=== PATIENT | male | born 1970 | race Caucasian/White ===

== ENCOUNTER 2021-01-13 14:46 | Outpatient (CLI) | payer OTHER, SELFPAY ==
--- NOTE | ~2021-01-13 | US_ITS ---
EXAMINATION: US soft tissue LE RT EXAM DATE: 01/13/2021 15:10 INDICATION: T14.8XXA - Other injury of unspecified body region, initial encounter. Leg injury, swelli ng. TECHNIQUE: Multiple grayscale and Doppler images of the right medial calf traumatic region were obtai shreya (by a technologist who performed the scan) and subsequently reviewed. FINDINGS: There is complex cystic heterogeneous avascular region measuring 2.8 x 2.0 x 0.7 cm, within the subcu taneous fat. Most likely a small focal hematoma. There is a nonthrombosed adjacent superficial vein. IMPRESSION: Right calf heterogeneous masslike region probably subcutaneous hematoma. Clinical correla tion and follow-up to resolution. Reviewed, dictated and finalized at location A. IMPRESSION: Right calf heterogeneous masslike region probably subcutaneous adriano niharika. Clinical correlation and follow-up to resolution.
== END 2021-01-13 14:47 | disposition home or self-care (01) ==
LOC: ANHIMG 14:50
PROVIDERS: Visit Provider Physician Assistant
DX: T14.8XXA Other injury of unspecified body region, initial encounter (principal)
CPT/HCPCS: 76882

== ENCOUNTER 2021-07-19 08:07 | Outpatient (CLI) | payer OTHER, SELFPAY ==
--- NOTE | ~2021-07-19 | NM_ITS ---
NM stress w perf spect multi Procedure: The patient was stressed using Modified Royce protocol. Prior to the end of exercise 32 m Ci Tc 99m IV administered. Rest imaging performed following administration of 10.2 mCi Tc 99m IV. I mages were reformatted into short axis, horizontal and vertical long axis sections for visual and billy ntitative analysis. Indication: Chest pain Comparison: None Findings: Computer assisted qualitative and quantitative analysis of the immediate and delayed images revealed normal left ventricular perfusion without evidence of fixed or reversible perfusion abnorma lity to suggest ischemia or infarction. Normal left ventricular cavity size, wall motion and ejectio n fraction. Left ventricular ejection fraction measures 49%. Impression: 1: No scintigraphic evidence of resting or stress induced perfusion abnormality. 2: Decreased left ventricle ejection fraction measuring 49. Reviewed, dictated and finalized at location A. Impression: 1: No scintigraphic evidence of resting or stress induced perfusion abnormality . 2: Decreased left ventricle ejection fraction measuring 49.
--- NOTE | 2021-07-19 08:13 | EST_ITS ---
Patient Info Name: Lenny Johnston Age: 51 years : 1970 Gender: Male Ht: 77 in Wt: 255 lbs BSA: 2.53 m2 HR: 70 bpm BP: 121 / 87 mmHg Heart Rhythm: Sinus Rhythm Exam Date: 07/19/2021 9:06 AM Exam Location: [facility] Stress Patient Status: Outpatient Admit Date: 07/19/2021 Staff Ordering Physician: Jairo Moya PA-C Attending Provider: Jairo Moya PA-C Exercise Technologist: Kristin Mackey CT Exercise Physician: Jamir Chong DO Exam Type: CA stress test treadmill w NM Study Info A nuclear stress test was performed. Summary 1. 1. Negative Royce exercise stress test for ischemic ST changes by ECG criteria. 2. 2. Good functional capacity, achieving 12 METs of workload. 3. 3. Appropriate HR response to exercise. 4. 4. Appropriate HR recovery at 1 minute post exercise. 5. 5. Nuclear scan to follow and will be reported separately. Please correlate with it. 6. 6. Patient informed of the above results. Protocol: Royce Stress ECG Details Stage: REST Duration (min): 1 min : 0 sec Speed (mph): 0.0 Grade (%): 0 HR (bpm): 71 SBP (mmHg): 121 DBP (mmHg): 87 METS: --- Stage: REST Duration (min): 8 min : 36 sec Speed (mph): 0.0 Grade (%): 0 HR (bpm): 74 SBP (mmHg): 121 DBP (mmHg): 87 METS: --- Stage: STAGE 1 Duration (min): 1 min : 0 sec Speed (mph): 1.7 Grade (%): 10 HR (bpm): 98 SBP (mmHg): 121 DBP (mmHg): 87 METS: --- Stage: STAGE 1 Duration (min): 2 min : 0 sec Speed (mph): 1.7 Grade (%): 10 HR (bpm): 101 SBP (mmHg): 121 DBP (mmHg): 87 METS: --- Stage: STAGE 1 Duration (min): 3 min : 0 sec Speed (mph): 1.7 Grade (%): 10 HR (bpm): 101 SBP (mmHg): 130 DBP (mmHg): 89 METS: --- Stage: STAGE 2 Duration (min): 1 min : 0 sec Speed (mph): 2.5 Grade (%): 12 HR (bpm): 113 SBP (mmHg): 130 DBP (mmHg): 89 METS: --- Stage: STAGE 2 Duration (min): 2 min : 0 sec Speed (mph): 2.5 Grade (%): 12 HR (bpm): 118 SBP (mmHg): 152 DBP (mmHg): 85 METS: --- Stage: STAGE 2 Duration (min): 3 min : 0 sec Speed (mph): 2.5 Grade (%): 12 HR (bpm): 122 SBP (mmHg): 152 DBP (mmHg): 85 METS: --- Stage: STAGE 3 Duration (min): 1 min : 0 sec Speed (mph): 3.4 Grade (%): 14 HR (bpm): 126 SBP (mmHg): 152 DBP (mmHg): 85 METS: --- Stage: STAGE 3 Duration (min): 2 min : 0 sec Speed (mph): 3.4 Grade (%): 14 HR (bpm): 138 SBP (mmHg): 177 DBP (mmHg): 87 METS: --- Stage: STAGE 3 Duration (min): 3 min : 0 sec Speed (mph): 3.4 Grade (%): 14 HR (bpm): 142 SBP (mmHg): 181 DBP (mmHg): 87 METS: --- Stage: STAGE 4 Duration (min): 1 min : 0 sec Speed (mph): 4.2 Grade (%): 16 HR (bpm): 152 SBP (mmHg): 181 DBP (mmHg): 87 METS: ---
== END 2021-07-19 08:08 | disposition home or self-care (01) ==
LOC: ANHCARD 08:09
PROVIDERS: PCP Physician Assistant; Visit Provider Physician Assistant
DX: R07.89 Other chest pain (principal)
CPT/HCPCS: 78452; 93017; A9502

== ENCOUNTER 2024-01-10 10:22 | Outpatient (CLI) | payer OTHER, SELFPAY ==
[2024-01-10 12:51] LABS: Basophils Percent Auto 0.8 % (0.2-1.2); Eosinophils Absolute Auto 0.1 K/mm3 (0-0.3); Eosinophils Percent Auto 1.8 % (0-4.4); Hematocrit 44.8 % (42.0-52.0); Hemoglobin 14.5 g/dL (14.0-18.0); Immature Granulocyte Absolute 0.01 K/mm3 (0.00-0.031); Immature Granulocyte Percent A 0.2 % (0-0.5); Lymphocytes Absolute Auto 1.82 K/mm3 (0.9-3.2); Lymphocytes Percent Auto 36.9 % (18.3-44.2); Mean Corpuscular HGB Conc 32.4 g/dl (32-36); Mean Corpuscular Hemoglobin 30.6 pg (26-34); Mean Corpuscular Volume 94.5 fl (80-100); Mean Platelet Volume 10.7 fl (7.4-10.4); Monocytes Absolute Auto 0.5 K/mm3 (0.1-0.6); Monocytes Percent Auto 9.1 % (2.6-8.5); Neutrophils Absolute Auto 2.5 K/mm3 (1.3-6.7); Neutrophils Percent Auto 51.2 % (45.5-73.1); Platelet Count Result 269 k/mm3 (150-375); Red Blood Count 4.74 M/mm3 (4.6-6.20); Red Cell Distribution Width 13.4 % (11.5-14.5); White Blood Count 4.9 K/mm3 (4.5-10.0)
[2024-01-10 13:01] LABS: Alanine Aminotransferase 42 U/L (6-50); Albumin Level 4.3 g/dL (3.5-5.1); Alkaline Phosphatase 56 U/L (38-126); Anion Gap 3 mmol/L (8-16); Aspartate Amino Transferase 50 U/L (17-59); Bilirubin,Total 0.9 mg/dL (0.2-1.3); Blood Urea Nitrogen 12 mg/dL (9-20); Calcium 9.3 mg/dL (8.4-10.2); Carbon Dioxide 30 mmol/L (22-30); Chloride 103 mmol/L (98-107); Cholesterol 211 mg/dL (0-200); Estimated Glomerular Filt Rate > 60; Glucose 92 mg/dL (65-110); HDL Direct 67 mg/dL; Potassium 4.2 mmol/L (3.4-5.0); Sodium 136 mmol/L (137-145); Triglycerides 77 mg/dL (<150)
[2024-01-10 13:25] LABS: LDL Cholesterol Direct 118 mg/dL
[2024-01-10 13:29] LABS: Prostate Specific Antigen 0.8 ng/mL (< OR = 4.0)
[2024-01-10 13:31] LABS: Hemoglobin A1C 5.3 % (<5.7)
[2024-01-13 06:55] LABS: Insulin Level Total 4.9 uIU/mL (<=18.4)
[2024-01-14 18:05] LABS: Testosterone Total 531 ng/dL (250-1100)
[2024-01-18 22:46] LABS: Estradiol, Ultrasensitive 22 pg/mL (< OR = 29)
== END 2024-01-10 10:23 | disposition home or self-care (01) ==
LOC: ANHGOSHLAB 10:25
PROVIDERS: PCP Physician Assistant
DX: E53.8 Deficiency of other specified B group vitamins (principal); E55.9 Vitamin D deficiency, unspecified; G47.00 Insomnia, unspecified; R53.83 Other fatigue; R73.01 Impaired fasting glucose
CPT/HCPCS: 36415; 80053; 80061; 82670; 83036; 83525; 84153; 84403; 85025; 86337